=== PATIENT | male | born 1980 | race Caucasian/White ===

== ENCOUNTER 2017-09-24 18:38 | Emergency (ER) | payer OTHER ==
[2017-09-24] MEDS ORDERED: SODIUM CHLOR 0.9% 1000 ML INJ 1,000 ML IV ONE (19:15)
[2017-09-24] MEDS ORDERED: ONDANSETRON HCL 4 MG/2 ML VIAL IV PUSH ONE (19:15)
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
[2017-09-24 19:44] VITALS: BP 119/72; PULSE 96; RESP 18; TEMP 98.8; O2SAT 96
[2017-09-24 19:49] LABS: AUTOMATED NEUTROPHIL # 9.4 TH/MM3 (1.8-7.7); BASOPHIL % 0.2 % (0.0-2.0); EOSINOPHIL % 0.3 % (0.0-4.0); HEMO FLAGS DIFF FINAL; LYMPH % 13.8 % (9.0-44.0); LYMPHOCYTE # 1.7 TH/MM3 (1.0-4.8); MEAN CELL VOLUME 91.6 FL (80.0-100.0); MEAN CORPUSCULAR HEMOGLOBIN 31.4 PG (27.0-34.0); MEAN CORPUSCULAR HGB CONC 34.2 % (32.0-36.0); MONO % 9.8 % (0.0-8.0); NEUT % 75.9 % (16.0-70.0); PLATELET COUNT 328 TH/MM3 (150-450); RED BLOOD COUNT 4.69 MIL/MM3 (4.50-5.90); RED CELL DISTRIBUTION WIDTH 14.1 % (11.6-17.2); WHITE BLOOD COUNT 12.4 TH/MM3 (4.0-11.0)
[2017-09-24] MEDS ORDERED: DILA100C PO (19:52)
[2017-09-24] MEDS ORDERED: CLON.5 PO (19:52)
[2017-09-24] MEDS ORDERED: CELE20TA PO (19:52)
[2017-09-24 20:10] LABS: ANION GAP 7 MEQ/L (5-15); AST (GOT) 40 U/L (15-37); BICARBONATE 31.3 MEQ/L (21.0-32.0); BLOOD UREA NITROGEN 7 MG/DL (7-18); CHLORIDE 98 MEQ/L (98-107); GLOMERULAR FILTRATION RATE 93 ML/MIN (>89); POTASSIUM 3.6 MEQ/L (3.5-5.1); SODIUM (NA) 136 MEQ/L (136-145)
[2017-09-24 20:12] LABS: ALKALINE PHOSPHATASE 88 U/L (45-117); ALT (GPT) 81 U/L (12-78); TOTAL BILIRUBIN ADULT 0.7 MG/DL (0.2-1.0)
[2017-09-24 20:26] LABS: ALCOHOL LESS THAN 3 MG/DL (0-5)
[2017-09-24 20:38] LABS: ACETAMINOPHEN LESS THAN 2.0 MCG/ML (10.0-30.0)
[2017-09-24 23:04] VITALS: BP 144/77; PULSE 83; RESP 18; TEMP 98.2; O2SAT 99
[2017-09-25 02:00] VITALS: BP 110/56; PULSE 67; RESP 17; TEMP 99; O2SAT 95
[2017-09-25 06:00] VITALS: BP 101/55; PULSE 79; RESP 18; O2SAT 97
[2017-09-25 10:05] VITALS: BP 125/67; PULSE 77; RESP 17; O2SAT 99
[2017-09-25] MEDS ORDERED: PHENYTOIN SODIUM 100 MG CAP PO ONE (18:30)
[2017-09-25 18:42] VITALS: BP 110/67; PULSE 84; RESP 18; O2SAT 96
[2017-09-26 06:21] VITALS: BP 124/67; PULSE 67; RESP 18
[2017-09-26 10:13] VITALS: BP 120/77; PULSE 73; RESP 18; TEMP 98.9; O2SAT 99
== END 2017-09-26 14:00 ==
LOC: NEPE 18:38 → NEPJ 09-26 14:00
DX: Z02.89 Encounter for other administrative examinations (principal); R45.851 Suicidal ideations; R11.2 Nausea with vomiting, unspecified; Z72.0 Tobacco use; Z79.899 Other long term (current) drug therapy; Z86.59 Personal history of other mental and behavioral disorders
CPT/HCPCS: 80053; 80185; 80307; 85025; 96361; 96374; 99284; J2405; J7030

== ENCOUNTER 2017-09-27 19:34 | Emergency (ER) | payer SELFPAY ==
[~2017-09-27 19:34] MED LIST: CELE20TA PO; CLON.5 PO; DILA100C PO
[2017-09-27 19:37] VITALS: BP 138/80; PULSE 95; RESP 16; TEMP 98; O2SAT 97
[2017-09-27 19:52] VITALS: BP 130/82; PULSE 88; RESP 18; O2SAT 98
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
[2017-09-27] MEDS ORDERED: SODIUM CHLORID 0.9% 500 ML INJ 500 ML IV ONE (20:15)
[2017-09-27 20:32] LABS: AUTOMATED NEUTROPHIL # 6.5 TH/MM3 (1.8-7.7); BASOPHIL % 0.3 % (0.0-2.0); EOSINOPHIL # 0.1 TH/MM3 (0-0.4); EOSINOPHIL % 0.9 % (0.0-4.0); HEMATOCRIT 40.9 % (39.0-51.0); HEMO FLAGS DIFF FINAL; LYMPH % 28.3 % (9.0-44.0); LYMPHOCYTE # 2.9 TH/MM3 (1.0-4.8); MEAN CELL VOLUME 91.9 FL (80.0-100.0); MEAN CORPUSCULAR HGB CONC 34.8 % (32.0-36.0); MONO % 6.3 % (0.0-8.0); NEUT % 64.2 % (16.0-70.0); PLATELET COUNT 281 TH/MM3 (150-450); RED BLOOD COUNT 4.45 MIL/MM3 (4.50-5.90); RED CELL DISTRIBUTION WIDTH 14.1 % (11.6-17.2); WHITE BLOOD COUNT 10.1 TH/MM3 (4.0-11.0)
[2017-09-27 20:44] LABS: BLOOD, URINE NEG (NEG); COMMENT (UR) CULT NOT INDICATED; CULTURE IF INDICATED CULT NOT INDICATED; GLUCOSE,URINE NEG (NEG); GRANULAR CAST, URINE 19 /lpf; HYALINE CAST, URINE 40 /lpf (RARE); KETONE, URINE NEG (NEG); MUCUS URINE MANY /lpf (OCC); NITRITE,URINE NEG (NEG); PH, URINE 5.5 (5.0-8.5); SQUAMOUS EPITHELIAL CELL URINE <1 /hpf (0-5); URINE COLOR YELLOW (YELLW/STRAW)
[2017-09-27 20:50] LABS: ALT (GPT) 44 U/L (12-78); ANION GAP 11 MEQ/L (5-15); AST (GOT) 19 U/L (15-37); BICARBONATE 24.9 MEQ/L (21.0-32.0); BLOOD UREA NITROGEN 11 MG/DL (7-18); CHLORIDE 104 MEQ/L (98-107); GLOMERULAR FILTRATION RATE 97 ML/MIN (>89); MAGNESIUM 1.5 MG/DL (1.5-2.5); POTASSIUM 3.7 MEQ/L (3.5-5.1); SODIUM (NA) 140 MEQ/L (136-145)
[2017-09-27 20:52] LABS: ALCOHOL 4 MG/DL (0-5)
[2017-09-27 20:53] LABS: ALKALINE PHOSPHATASE 68 U/L (45-117); TOTAL BILIRUBIN ADULT 0.4 MG/DL (0.2-1.0)
[2017-09-27 22:58] VITALS: BP 121/81
== END 2017-09-27 23:00 | disposition home or self-care (01) ==
LOC: NEPE 19:34
DX: G40.909 Epilepsy, unspecified, not intractable, without status epilepticus (principal); F19.10 Other psychoactive substance abuse, uncomplicated; F32.9 Major depressive disorder, single episode, unspecified; F43.10 Post-traumatic stress disorder, unspecified; F10.10 Alcohol abuse, uncomplicated; Z87.820 Personal history of traumatic brain injury; Z79.899 Other long term (current) drug therapy; Z88.8 Allergy status to other drugs, medicaments and biological substances; Y90.0 Blood alcohol level of less than 20 mg/100 ml
CPT/HCPCS: 80053; 80185; 80307; 81001; 83735; 85025; 96360; 99284; J7040

== ENCOUNTER 2017-09-29 05:40 | Emergency (ER) | payer SELFPAY ==
[~2017-09-29] VITALS: Ht 185.4 cm; Wt 82.0 kg
[2017-09-29 05:41] VITALS: BP 126/80; PULSE 96; RESP 16; TEMP 98; O2SAT 97
[2017-09-29] MEDS ORDERED: SODIUM CHLOR 0.9% 1000 ML INJ 1,000 ML IV ONE (06:00)
[2017-09-29 06:10] LABS: AUTOMATED NEUTROPHIL # 3.4 TH/MM3 (1.8-7.7); BASOPHIL % 0.5 % (0.0-2.0); EOSINOPHIL # 0.1 TH/MM3 (0-0.4); EOSINOPHIL % 1.8 % (0.0-4.0); HEMO FLAGS DIFF FINAL; LYMPH % 27.6 % (9.0-44.0); LYMPHOCYTE # 1.5 TH/MM3 (1.0-4.8); MEAN CELL VOLUME 90.9 FL (80.0-100.0); MEAN CORPUSCULAR HEMOGLOBIN 32.1 PG (27.0-34.0); MEAN CORPUSCULAR HGB CONC 35.3 % (32.0-36.0); MONO % 6.8 % (0.0-8.0); NEUT % 63.3 % (16.0-70.0); PLATELET COUNT 256 TH/MM3 (150-450); RED CELL DISTRIBUTION WIDTH 14.1 % (11.6-17.2); WHITE BLOOD COUNT 5.4 TH/MM3 (4.0-11.0)
[2017-09-29 06:33] LABS: ANION GAP 7 MEQ/L (5-15)
[2017-09-29 06:37] LABS: ACETAMINOPHEN LESS THAN 2.0 MCG/ML (10.0-30.0); ALCOHOL LESS THAN 3 MG/DL (0-5); ALKALINE PHOSPHATASE 69 U/L (45-117); ALT (GPT) 48 U/L (12-78); AST (GOT) 26 U/L (15-37); BICARBONATE 26.1 MEQ/L (21.0-32.0); BLOOD UREA NITROGEN 8 MG/DL (7-18); CHLORIDE 106 MEQ/L (98-107); GLOMERULAR FILTRATION RATE 137 ML/MIN (>89); POTASSIUM 3.5 MEQ/L (3.5-5.1); SODIUM (NA) 139 MEQ/L (136-145); TOTAL BILIRUBIN ADULT 0.4 MG/DL (0.2-1.0)
--- NOTE | 2017-09-29 06:40 | PD ---
HPI Chief Complaint: OD/ Ingestion Time Seen by Provider: 05:52 Travel History International Travel<30 days: No Contact w/Intl Traveler<30days: No Traveled to known affect area: No History of Present Illness HPI 37-year-old male came to the emergency room with history of overdosing on 25 Dilantin before coming to the emergency room. Patient appears to be homeless. He was in the emergency room couple days ago for seizure. Patient voluntarily came in to triage and said that he overdosed on these medications in attempt to kill himself. He is however awake and talking with no obvious distress. Vital signs are stable. [facility] Past Medical History Narrative Medical List of his past medical, surgical, social and family history is reviewed from the nursing note. Depression: Yes Diminished Hearing: No Neurologic: Yes (TBI) Psychiatric: Yes (PTSD) Seizures: Yes Past Surgical History Other Surgery: Yes (BILATERAL FEET) Social History Alcohol Use: Yes (binge drinking due to problems with girlfriend. 2 beers today ) Tobacco Use: No (quit year ago ) Substance Use: Yes (hydrocodone, cocaine) Allergies-Medications (Allergen,Severity, Reaction): Coded Allergies: venlafaxine (Verified Allergy, Unknown, 09/29/17) Uncoded Allergies: PCN (Allergy, Unknown, 09/24/17) Comments List of his allergies reviewed from the nursing note. Reported Meds & Prescriptions Reported Meds & Active Scripts Active Reported Klonopin (Clonazepam) 0.5 Mg Tab 0.5 Mg PO Q4HR Dilantin (Phenytoin Extended) 100 Mg Cap 200 Mg PO BID Celexa (Citalopram Hydrobromide) 20 Mg Tab 30 Mg PO DAILY Narrative Medication List of his home medications reviewed from the nursing note. Review of Systems Except as stated in HPI: all other systems reviewed are Neg Physical Exam Narrative GENERAL: A, alert, poor skin hygiene SKIN: Focused skin assessment warm/dry. HEAD: Atraumatic. Normocephalic. EYES: Pupils equal and round. No scleral icterus. No injection or drainage. ENT: No nasal bleeding or discharge. Mucous membranes pink and moist. NECK: Trachea midline. No JVD. CARDIOVASCULAR: Regular rate and rhythm. No murmur appreciated. RESPIRATORY: No accessory muscle use. Clear to auscultation. Breath sounds equal bilaterally. GASTROINTESTINAL: Abdomen soft, non-tender, nondistended. Hepatic and splenic margins not palpable. MUSCULOSKELETAL: No obvious deformities. No clubbing. No cyanosis. No edema. NEUROLOGICAL: Awake and alert. No obvious cranial nerve deficits. Motor grossly within normal limits. Normal speech. PSYCHIATRIC: Appropriate mood and affect; insight and judgment normal. Data Data Last Documented VS Orders Orders Complete Blood Count With Diff (09/29/17 05:52) Comprehensive Metabolic Panel (09/29/17 05:52) Electrocardiogram (09/29/17 05:52) Phenytoin (Dilantin) (09/29/17 05:52) Psych Screen (09/29/17 05:52) Drug Screen, Random Urine (09/29/17 05:52) Alcohol (Ethanol) (09/29/17 05:52) Salicylates (Aspirin) (09/29/17 05:52) Tylenol (Acetaminophen) (09/29/17 05:52) Sodium Chlor 0.9% 1000 Ml Inj (Ns 1000 M (09/29/17 06:00) Call Poison Control (09/29/17 05:53) Phenytoin (Dilantin) (09/29/17 08:00) Ed Discharge Order (09/29/17 09:46) Labs Laboratory Tests Test 09/29/17 06:01 09/29/17 07:40 09/29/17 07:45 White Blood Count 5.4 TH/MM3 Red Blood Count 4.40 MIL/MM3 Hemoglobin 14.1 GM/DL Hematocrit 40.0 % Mean Corpuscular Volume 90.9 FL Mean Corpuscular Hemoglobin 32.1 PG Mean Corpuscular Hemoglobin Concent 35.3 % Red Cell Distribution Width 14.1 % Platelet Count 256 TH/MM3 Mean Platelet Volume 6.4 FL Neutrophils (%) (Auto) 63.3 % Lymphocytes (%) (Auto) 27.6 % Monocytes (%) (Auto) 6.8 % Eosinophils (%) (Auto) 1.8 % Basophils (%) (Auto) 0.5 % Neutrophils # (Auto) 3.4 TH/MM3 Lymphocytes # (Auto) 1.5 TH/MM3 Monocytes # (Auto) 0.4 TH/MM3 Eosinophils # (Auto) 0.1 TH/MM3 Basophils # (Auto) 0.0 TH/MM3 CBC Comment DIFF FINAL Differential Comment Blood Urea Nitrogen 8 MG/DL Creatinine 0.65 MG/DL Random Glucose 107 MG/DL Total Protein 7.1 GM/DL Albumin 3.8 GM/DL Calcium Level 8.3 MG/DL Alkaline Phosphatase 69 U/L Aspartate Amino Transf (AST/SGOT) 26 U/L Alanine Aminotransferase (ALT/SGPT) 48 U/L Total Bilirubin 0.4 MG/DL Sodium Level 139 MEQ/L Potassium Level 3.5 MEQ/L Chloride Level 106 MEQ/L Carbon Dioxide Level 26.1 MEQ/L Anion Gap 7 MEQ/L Estimat Glomerular Filtration Rate 137 ML/MIN Salicylates Level LESS THAN 1.7 MG/DL Acetaminophen Level LESS THAN 2.0 MCG/ML Phenytoin (Dilantin) Level 12.7 MCG/ML 10.4 MCG/ML Ethyl Alcohol Level LESS THAN 3 MG/DL Urine Opiates Screen NEG Urine Barbiturates Screen NEG Urine Amphetamines Screen NEG Urine Benzodiazepines Screen NEG Urine Cocaine Screen NEG Urine Cannabinoids Screen NEG MDM Medical Decision Making Medical Screen Exam Complete: Yes Emergency Medical Condition: Yes Medical Record Reviewed: Yes Interpretation(s) Twelve-lead EKG was reviewed by me. Normal sinus rhythm, normal axis, nonspecific ST-T wave changes. Heart rate of 74 bpm. Differential Diagnosis Malingering, homelessness, Dilantin overdose, major depression Narrative Course 6:39 AM poison control has been called. Did recommend repeat Dilantin in 2 hours. Patient will be signed over to the oncoming ER physician. However given patient's demeanor in no obvious distress there is a chance that this could be malingering. However repeat blood tests will be done as per poison control's recommendation. Procedures EKG Prior to Arrival: iYsel Albarran MD Sep 29, 2017 06:40
--- NOTE | 2017-09-29 09:14 | PD ---
Physical Exam Narrative Patient signed out to me by Dr. Nur. Please see her documentation for complete details. Briefly, patient reports taking several Dilantins today. He says he does not think his depression medication is working. He reports compliance with his Celexa. Poison control suggested observation and repeat Dilantin level in 2 hours. First Dilantin level was within normal range at 12. Patient is not currently having any symptoms of Dilantin toxicity. Data Data Last Documented VS Vital Signs Date Time Temp Pulse Resp B/P (MAP) Pulse Ox O2 Delivery O2 Flow Rate FiO2 09/29/17 05:41 98.0 96 16 126/80 (95) 97 Room Air Orders Orders Complete Blood Count With Diff (09/29/17 05:52) Comprehensive Metabolic Panel (09/29/17 05:52) Electrocardiogram (09/29/17 05:52) Phenytoin (Dilantin) (09/29/17 05:52) Psych Screen (09/29/17 05:52) Drug Screen, Random Urine (09/29/17 05:52) Alcohol (Ethanol) (09/29/17 05:52) Salicylates (Aspirin) (09/29/17 05:52) Tylenol (Acetaminophen) (09/29/17 05:52) Sodium Chlor 0.9% 1000 Ml Inj (Ns 1000 M (09/29/17 06:00) Call Poison Control (09/29/17 05:53) Phenytoin (Dilantin) (09/29/17 08:00) Ed Discharge Order (09/29/17 09:46) Labs Laboratory Tests Test 09/29/17 06:01 09/29/17 07:40 09/29/17 07:45 White Blood Count 5.4 TH/MM3 Red Blood Count 4.40 MIL/MM3 Hemoglobin 14.1 GM/DL Hematocrit 40.0 % Mean Corpuscular Volume 90.9 FL Mean Corpuscular Hemoglobin 32.1 PG Mean Corpuscular Hemoglobin Concent 35.3 % Red Cell Distribution Width 14.1 % Platelet Count 256 TH/MM3 Mean Platelet Volume 6.4 FL Neutrophils (%) (Auto) 63.3 % Lymphocytes (%) (Auto) 27.6 % Monocytes (%) (Auto) 6.8 % Eosinophils (%) (Auto) 1.8 % Basophils (%) (Auto) 0.5 % Neutrophils # (Auto) 3.4 TH/MM3 Lymphocytes # (Auto) 1.5 TH/MM3 Monocytes # (Auto) 0.4 TH/MM3 Eosinophils # (Auto) 0.1 TH/MM3 Basophils # (Auto) 0.0 TH/MM3 CBC Comment DIFF FINAL Differential Comment Blood Urea Nitrogen 8 MG/DL Creatinine 0.65 MG/DL Random Glucose 107 MG/DL Total Protein 7.1 GM/DL Albumin 3.8 GM/DL Calcium Level 8.3 MG/DL Alkaline Phosphatase 69 U/L Aspartate Amino Transf (AST/SGOT) 26 U/L Alanine Aminotransferase (ALT/SGPT) 48 U/L Total Bilirubin 0.4 MG/DL Sodium Level 139 MEQ/L Potassium Level 3.5 MEQ/L Chloride Level 106 MEQ/L Carbon Dioxide Level 26.1 MEQ/L Anion Gap 7 MEQ/L Estimat Glomerular Filtration Rate 137 ML/MIN Salicylates Level LESS THAN 1.7 MG/DL Acetaminophen Level LESS THAN 2.0 MCG/ML Phenytoin (Dilantin) Level 12.7 MCG/ML 10.4 MCG/ML Ethyl Alcohol Level LESS THAN 3 MG/DL Urine Opiates Screen NEG Urine Barbiturates Screen NEG Urine Amphetamines Screen NEG Urine Benzodiazepines Screen NEG Urine Cocaine Screen NEG Urine Cannabinoids Screen NEG MDM Supervised Visit with [facility]: No Narrative Course Repeat Dilantin level has decreased to 10, still within the therapeutic window. Patient states he must have vomited up the Dilantin after he took it. He is requesting to see psychiatry. He is medically cleared for psych screen. Patient seen by psych screener. Given a bus pass and information to get to [facility]. Patient was just discharged from [facility] and is familiar with them. Diagnosis Primary Impression: Depression Qualified Codes: F33.1 - Major depressive disorder, recurrent, moderate Referrals: [facility] Patient Instructions: Depression (ED), General Instructions Additional Instruction: Follow up with jaja Sanchez. Return to the ED as needed for any worsening symptoms. Disposition: 01 DISCHARGE HOME Condition: Stable Halima Rodriguez MD Sep 29, 2017 09:14
--- NOTE | 2017-09-29 17:58 | EKG ---
Date Performed: 09/29/2017 Time Performed: 05:55:45 PTAGE: 37 years EKG: Sinus rhythm Nonspecific ST-T wave changes. ABNORMAL ECG NO PREVIOUS TRACING DOCTOR: Juan Francisco Mace Interpretating Date/Time 09/29/2017 17:56:48
== END 2017-09-29 10:08 | disposition home or self-care (01) ==
LOC: NEPE 05:40
DX: F33.1 Major depressive disorder, recurrent, moderate (principal); F43.10 Post-traumatic stress disorder, unspecified; R94.31 Abnormal electrocardiogram [ECG] [EKG]; Z79.899 Other long term (current) drug therapy; Z87.820 Personal history of traumatic brain injury; Z86.69 Personal history of other diseases of the nervous system and sense organs
CPT/HCPCS: 80053; 80185; 80307; 85025; 93005; 96360; 96361; 99285; J7030